=== PATIENT | female | born 1960 | race Caucasian/White ===

== ENCOUNTER 2017-08-16 22:28 | Emergency (ER) | payer OTHER ==
[~2017-08-16] VITALS: Ht 170.2 cm; Wt 74.4 kg
[~2017-08-16 22:28] MED LIST: ACET325 PO; CLIN300 PO; OXYACE5T PO; PENVK500 PO; RXOXYACE PO
[2017-08-17] MEDS ORDERED: Norco 5-325 Ta1 EACH PO (01:59)
[2017-08-17 02:02] LABS: Source, Urine Clean Catch
[2017-08-17 02:04] LABS: Bilirubin, Urine Neg (Neg); Blood, Urine Neg (Neg); Glucose Qualitative, Urine Neg (Neg); Ketones, Urine Neg (Neg); Leukocyte Esterase, Urine 2+ (Neg); Nitrite, Urine Neg (Neg); Protein, Urine Neg (Neg); Urobilinogen, Urine 2+ (Normal); pH, Urine 6.5 (5.0-8.0)
[2017-08-17 02:06] LABS: Appearance, Urine Clear (Clear); Color, Urine Yellow (P-Yellow)
[2017-08-17 02:12] LABS: Bacteria Mod /hpf; Red Blood Cells, Urine 0-2 /hpf (0-2); Squamous Epithelial Cells Rare /hpf (Few)
== END 2017-08-17 02:15 | disposition home or self-care (01) ==
LOC: ER 22:28
PROVIDERS: Physician Assistant
DX: M25.551 Pain in right hip (principal); Z88.1 Allergy status to other antibiotic agents; Z87.891 Personal history of nicotine dependence
CPT/HCPCS: 73502; 81001; 87086; 99283

== ENCOUNTER 2018-12-04 19:06 | Emergency (ER) | payer OTHER ==
[~2018-12-04] VITALS: Ht 170.2 cm; Wt 73.5 kg
[~2018-12-04 19:06] MED LIST changes: +Norco 5-325 Ta1 EACH PO
[2018-12-04] MEDS ORDERED: ALBU90OI INH (20:06)
== END 2018-12-04 20:25 | disposition home or self-care (01) ==
LOC: ER 19:06
DX: R05 Cough (principal); Z88.1 Allergy status to other antibiotic agents; F17.200 Nicotine dependence, unspecified, uncomplicated
CPT/HCPCS: 71046; 99283-25

== ENCOUNTER 2021-02-27 23:32 | Emergency (ER) | payer OTHER ==
[~2021-02-27] VITALS: Ht 170.2 cm; Wt 72.6 kg
[~2021-02-27 23:32] MED LIST changes: +ALBU90OI INH
== END 2021-02-28 01:02 | disposition home or self-care (01) ==
LOC: ER 23:32
DX: H92.02 Otalgia, left ear (principal); Z88.1 Allergy status to other antibiotic agents
CPT/HCPCS: 99282